=== PATIENT | female | born 1980 | race Caucasian/White ===

== ENCOUNTER 2019-08-14 18:27 | Emergency (ER) | payer OTHER ==
[2019-08-14 19:00] VITALS: RESP 17; TEMP 98.7
--- NOTE | 2019-08-14 20:38 | ED ---
General Adult HPI - General Chief complaint: Recheck/Abnormal Lab/Rx Stated complaint: hypertension, blurred vision Time Seen by Provider: 08/14/19 19:22 Source: patient Mode of arrival: ambulatory Limitations: no limitations - History of Present Illness Initial comments: Dictation was produced using [employer] dictation software. please excuse any gra mmatical, word or spelling errors. Chief Complaint: 38-year-old female presents with chief complaint of transient vision changes and left elbow discomfort History of Present Illness: Patient's 38-year-old female she presents with a transient episode of left eye vision changes and left elbow discomfort. Patient states that her vision changes lasted for only a couple minutes. She states that it was a twitching blurriness to her left temporal vision. She states it's completely gone and she feels completely normal. Patient also experience some left elbow discomfort. She denies it as a pain. She states it felt like she needed to squeeze it to make it feel better. She states that last for several minutes however now she feels like it's completely resolved. Patient feels well . She states she was recently diagnosed with high blood pressure. She has not taken her medication in a week. She was prescribed hydrochlorothiazide. The ROS documented in this emergency department record has been reviewed and confirmed by me. Those systems with pertinent positive or negative responses have been documented in the HPI. All other systems are other negative and/or noncontributory. PHYSICAL EXAM: General Impression: Alert and oriented x3, not in acute distress HEENT: Normocephalic atraumatic, extra-ocular movements intact, pupils equal and reactive to light bilaterally, mucous membranes moist. Cardiovascular: Heart regular rate and rhythm, S1&S2 audible, no murmurs, rubs or gallops Chest: Lungs clear to auscultation bilaterally, no rhonchi, no wheeze, no rales Abdomen: Bowel sounds present, abdomen soft, non-tender, non-distended, no organomegaly Musculoskeletal: Pulses present and equal in all extremities, no peripheral edema Motor: no focal deficits noted Neurological: CN II-XII grossly intact, no focal motor or sensory deficits noted Skin: Intact with no visualized rashes Psych: Normal affect and mood ED course: 38 yo female presents with vague vision changes and transient left elbow discomfort. Signs upon arrival shows blood pressure 174-113, rest of vital signs within acceptable limits. Clinical presentation consistent with hypertensive urgency or emergency. Patient is completely benign at this time. She feels at baseline. She has stress at home with her children. Return evaluation is unremarkable. Patient clear for discharge. Patient told to follow-up with primary care physician. She is encouraged to refill her blood pressure medications to begin taking them again. EKG interpretation: Ventricular rate 79, normal sinus rhythm,. 142, QRS 74, QTC 444. No CO prolongation, no QTC prolongation, no ST or T-wave changes noted. EKG compared to [default value] showing no changes. Overall, this EKG is unremarkable - Related Data Allergies Allergy/AdvReac Type Severity Reaction Status Date / Time ciprofloxacin [From Cipro] Allergy Unknown Verified 08/14/19 19:00 Review of Systems ROS Statement: Those systems with pertinent positive or pertinent negative responses have been documented in the HPI. ROS Other: All systems not noted in ROS Statement are negative. Past Medical History Past Medical History: Hypertension, Thyroid Disorder History of Any Multi-Drug Resistant Organisms: None Reported Past Surgical History: No Surgical Hx Reported Past Psychological History: No Psychological Hx Reported Smoking Status: Never smoker Past Alcohol Use History: Occasional Past Drug Use History: None Reported General Exam Limitations: no limitations Course Vital Signs 08/14/19 18:57 Temperature 98.7 F Pulse Rate 78 Respiratory 17 Rate Blood Pressure 174/113 O2 Sat by Pulse 98 Oximetry Medical Decision Making - Lab Data Result diagrams: 08/14/19 19:50 08/14/19 19:50 Lab Results 08/14/19 08/14/19 Range/Units 19:50 19:50 WBC 4.6 (3.8-10.6) k/uL RBC 4.33 (3.80-5.40) m/uL Hgb 13.2 (11.4-16.0) gm/dL Hct 38.7 (34.0-46.0) % MCV 89.5 (80.0-100.0) fL MCH 30.5 (25.0-35.0) pg MCHC 34.1 (31.0-37.0) g/dL RDW 12.1 (11.5-15.5) % Sodium 136 L (137-145) mmol/L Potassium 3.6 (3.5-5.1) mmol/L Chloride 103 (98-107) mmol/L Carbon Dioxide 24 (22-30) mmol/L Anion Gap 9 mmol/L BUN 13 (7-17) mg/dL Creatinine 0.82 (0.52-1.04) mg/dL Est GFR (CKD-EPI)AfAm >90 (>60 ml/min/1.73 sqM) Est GFR (CKD-EPI)NonAf >90 (>60 ml/min/1.73 sqM) Glucose 94 (74-99) mg/dL Calcium 9.5 (8.4-10.2) mg/dL Ionized Calcium Linette 4.8 (4.5-5.3) mg/dL Phosphorus 3.6 (2.5-4.5) mg/dL Magnesium 2.0 (1.6-2.3) mg/dL Disposition Clinical Impression: Hypertension Disposition: HOME SELF-CARE Condition: Good Instructions (If sedation given, give patient instructions): Chronic Hypertension (ED) Is patient prescribed a controlled substance at d/c from ED?: No Referrals: Orly Kiran MD [Primary Care Provider] - 1-2 days Time of Disposition: 21:19
[2019-08-14 20:52] LABS: African American GFR (CKD) >90 (>60 ml/min/1.73 sqM); Anion Gap 9 mmol/L; Blood Urea Nitrogen 13 mg/dL (7-17); Calcium 9.5 mg/dL (8.4-10.2); Carbon Dioxide 24 mmol/L (22-30); Chloride 103 mmol/L (98-107); Glucose 94 mg/dL (74-99); Non-African American GFR(CKD) >90 (>60 ml/min/1.73 sqM); Phosphorus 3.6 mg/dL (2.5-4.5); Potassium 3.6 mmol/L (3.5-5.1); Sodium 136 mmol/L (137-145)
[2019-08-14 20:57] LABS: Ionized Calcium 4.8 mg/dL (4.5-5.3)
[2019-08-14 21:07] LABS: HCT 38.7 % (34.0-46.0); HGB 13.2 gm/dL (11.4-16.0); MCH 30.5 pg (25.0-35.0); MCHC 34.1 g/dL (31.0-37.0); MCV 89.5 fL (80.0-100.0); Mean Platelet Volume 10.7; RBC 4.33 m/uL (3.80-5.40); RDW 12.1 % (11.5-15.5); WBC 4.6 k/uL (3.8-10.6)
[2019-08-14 21:37] VITALS: BP 145/102; PULSE 90
== END 2019-08-14 21:37 | disposition home or self-care (01) ==
LOC: EC 18:27
DX: I10 Essential (primary) hypertension (principal); H53.8 Other visual disturbances; M25.522 Pain in left elbow; Z63.8 Other specified problems related to primary support group; Z88.1 Allergy status to other antibiotic agents
CPT/HCPCS: 36415; 80048; 82330; 83735; 84100; 85025; 93005; 99284